=== PATIENT | male | born 1975 | race Caucasian/White ===

== ENCOUNTER 2025-03-13 18:45 | Emergency (ER) | payer BC ==
[~2025-03-13] VITALS: Wt 81.6 kg
[2025-03-13] MEDS ORDERED: MINIPRESS5 M1 PO (19:38)
[2025-03-13] MEDS ORDERED: ATIVAN1 MG PO (19:38)
[2025-03-13] MEDS ORDERED: ROSUVASTATIN CA10 MG PO (19:39)
[2025-03-13] MEDS ORDERED: METOCLOPRAMIDE5 MG PO (19:39)
[2025-03-13] MEDS ORDERED: CHOLESTYRAMINE R5 GM PO (19:40)
[2025-03-13 19:41] LABS: BASO # 0.1 10*3/uL (0.0-0.1); BASO % 0.6 % (0.0-1.0); EOS # 0.2 10*3/uL (0.0-0.4); EOS % 1.5 % (1.0-4.0); HEMATOCRIT 43.5 % (42.0-52.0); MEAN CORPUSCULAR HGB 27.8 pg (27.0-31.0); MEAN CORPUSCULAR HGB CONC 33.1 g/dl (33.0-37.0); MEAN PLATELET VOLUME 9.7 fl (9.6-12.3); MONO # 0.9 10*3/uL (0.1-1.0); NEUT # 8.5 10*3/uL (2.3-7.9); NEUT % 67.5 % (47.0-73.0); PLATELET COUNT AUTOMATED 358 10*3/uL (130-400); RED BLOOD COUNT 5.18 10*6/uL (4.50-5.90); RED CELL DISTRI WIDTH 14.3 % (0-14.5); WHITE BLOOD COUNT 12.7 10*3/uL (4.8-10.8)
[2025-03-13 19:59] LABS: BUN 12 mg/dl (9-23); CHLORIDE 105 mmol/L (98-107); POTASSIUM 3.5 mmol/L (3.4-5.1)
[2025-03-13 20:33] LABS: BILIRUBIN Negative (Negative); BLOOD Negative (Negative); CLARITY Clear (Clear); COLOR Yellow (Yellow); GLUCOSE Negative (Negative); KETONE Negative (Negative); LEUKO ESTERASE Negative (Negative); NITRITE Negative (Negative); SPECIFIC GRAVITY 1.015 (1.001-1.030); UROBILINOGEN 0.2 E.U./dl (0.0-1.0)
[2025-03-13] MEDS ORDERED: SODIUM CHLORIDE 0.9% 1,000 ML IV ONE (21:40)
== END 2025-03-13 22:45 | disposition home or self-care (01) ==
LOC: ED 18:45
PROVIDERS: Internal Medicine
DX: I95.1 Orthostatic hypotension (principal); Z79.899 Other long term (current) drug therapy; Z91.013 Allergy to seafood